=== PATIENT | male | born 1960 | race Caucasian/White ===

== ENCOUNTER 2021-08-02 15:11 | Observation (INO) ==
[2021-08-02] MEDS ORDERED: RAPID SEQUENCE INDUCTION BAG ONE (15:13)
[2021-08-02 15:36] LABS: iSTAT Creatinine 0.8 mg/dl (0.6-1.3); iSTAT Hemoglobin 14.6 g/dl (14.0-18.0); iSTAT Ionized Calcium 1.06 mmol/l (1.12-1.32); iSTAT Potassium 3.6 mmol/L (3.3-5.0)
[2021-08-02] MEDS ORDERED: OPTIRAY 320 125ml IV ONE (15:40)
[2021-08-02 15:43] LABS: Basophils # (auto) 0.04 K/uL (0-0.2); Basophils % (auto) 0.4 %; Eosinophils # (auto) 0.27 K/uL (0-0.5); Eosinophils % (auto) 2.5 %; Hematocrit (blood only) 43.6 % (42-52); Immature Granulocytes # (auto) 0.13 K/uL (0.00-0.02); Immature Granulocytes % (auto) 1.2 %; Lymphocytes # (auto) 2.05 K/uL (1.2-3.4); Mean Corpuscular Hgb Conc 34.4 g/dL (32-36); Mean Corpuscular Volume 90.1 fL (80-100); Mean Platelet Volume 11.2 fL (7.4-10.4); Monocytes # (auto) 0.87 K/uL (0.11-0.59); Neutrophils # (auto) 7.45 K/uL (1.4-6.5); Neutrophils % (auto) 68.9 %; Platelet Count 218 K/uL (130-400); RDW Coefficient of Variation 12.6 % (11.5-14.5); RDW Standard Deviation 41.5 fL (36.4-46.3); Red Blood Count 4.84 M/uL (4.7-6.1); White Blood Count 10.81 K/uL (4.8-10.8)
--- NOTE | 2021-08-02 15:52 | CT Scan Report ---
CT head/brain wo con CLINICAL HISTORY: stroke symptomss Technique: Contiguous axial CT images of the head were acquired from the base of the skull to the jasbir deborah without intravenous contrast administration. Images were viewed in brain, subdural and bone [facility]. Automated dose lowering techniques and/or adjustment according to patient size were utilized for this exam. Comparison: None available at the time of this dictation. Findings: The ventricles, basal cisterns, and cerebral sulci are normal. There is no acute intracranial hemorrh age or evidence of acute territorial infarction. Neither mass effect, shift of the midline structures , nor abnormal extra-axial fluid collections are shown. A hypodensity is seen in the left occipital cortex measuring 19 x 11 mm. This is nonspecific but does not appear to correspond to an acute infarc t. A mucous retention cyst is seen in the left maxillary sinus. The orbits appear normal. There are no acute fractures of the calvaria or scalp swelling. Impression: No evidence of acute infarct or hemorrhage. Hypodensity in left occipital is favored to represent a b enign lesion. If not previously characterized, nonemergent MRI can be performed. ACT 112: Negative or not required by law. Electronically signed by: Moreno Valiente M.D. 08/02/2021 3:51 PM
--- NOTE | 2021-08-02 15:53 | XRay Report ---
XR chest 1V portable CLINICAL HISTORY: Stroke Like Symptoms TECHNIQUE: Single frontal radiograph of the chest was obtained. Comparison: None available at the time of this dictation. FINDINGS: No lines and tubes are seen. The cardiomediastinal silhouette is normal. Prominence and cephalization of the vasculature is seen. A small left pleural effusion is seen. IMPRESSION: Mild pulmonary edema. Small left pleural effusion. ACT 112: Negative or not required by law. Electronically signed by: Moreno Valiente M.D. 08/02/2021 3:52 PM
[2021-08-02 15:59] LABS: Partial Thromboplastin Time 28.4 Seconds (21.0-31.0); Prothrombin Time 11.1 Seconds (9.0-12.0)
--- NOTE | 2021-08-02 16:03 | Emergency Department Note ---
Impression & Plan Altered mental status, Seizure, Right arm weakness, Hypoxia ED Provider Note NAME: INGRID WADE AGE: 60 SEX: M : 1960 ARRIVES VIA: Ambulance INFORMANT: [nursing, ems, family] ED PROVIDER(S): [Adrian King MD] CHIEF COMPLAINT: Altered mental state HISTORY OF PRESENT ILLNESS: The patient is a 60-year-old male who presents to the ER with an altered mental status. The patient for the last week or so has been having some difficulty with his right arm. The arm would not work for him and he would miss things he was grabbing. His symptoms seemed to come and go. He had an episode with the right arm today earlier. As per the , around an hour, may be an hour and 15 minutes ago, he yelled for her to come. She found him in the bathroom. He was talking like a child and seemed somewhat confused although there was no speech slur. He was holding his right arm as if it was stiff. He seemed to stumble back against the wall and she helped him to the ground. He had a 5-minute episode where he was stiff and his eyes rolled back in his head. He was drooling. EMS arrived. The patient was combative. Moving all extremities. He had a gaze to the right. There were times when he was lucid and could answer questions, there were times when he was not lucid. The patient was given 2 mg of IV Ativan, a second IV Ativan dose of 2 mg was given just prior to arrival at the ED. The patient presents confused, moving all extremities. Both his toes appear upgoing. He does have a gaze to the right. He was hypoxic and appeared to be taking very shallow breaths. Oxygen was applied. He was nonverbal and could not answer questions. He would look at me though when I yelled his name. REVIEW OF SYSTEMS: Unobtainable given the current mental state. PMHx/PSHx: See Below SOCIAL HISTORY: See Below. PHYSICAL EXAM: GENERAL: Patient is in moderate distress, somewhat agitated. HEENT: No acute trauma, normocephalic atraumatic, mucous membranes moist, no nasal congestion, no scleral icterus. Pupils equal and reactive to light. His gaze is to the right. NECK: No stridor, no adenopathy, no meningismus, trachea is midline. LUNGS: Clear to auscultation bilaterally but diminished bilaterally. He is taking shallow breaths. Breath sounds are equal. No wheezing. HEART: Without murmurs gallops or rubs, regular rate and rhythm. ABDOMEN: Soft, nontender, bowel sounds positive, no peritonitis. EXTREMITIES: No cyanosis or edema, full range of motion of all the joints without pain or difficulty, no signs for acute trauma. NEUROLOGIC: Does move all extremities. Both toes appear upgoing currently. Initially his gaze was to the right but this seemed to normalize during his stay. He would look at me when his name was called but was nonverbal. He could not follow any commands SKIN: No rash, no jaundice, mild diaphoresis. DIFFERENTIAL DIAGNOSIS: Seizure, intracranial bleeding, stroke, electrolyte imbalance, intracranial mass, anemia, infection, dysrhythmia, IN, among others. EMERGENCY DEPARTMENT COURSE/PROCEDURES: ECG: Indication was altered mental state. The ECG shows a normal sinus rhythm with a rate of 85. No ST elevation, no PVCs. LVH is present. The QTC is 449. Continuous Cardiac Monitoring: An order was placed for continuous cardiac monitoring. The monitor shows a rate of 74 with normal sinus rhythm. Critical Care Note: I have personally spent 61 minutes of critical care time in the direct management of this patient. This includes bedside care, interpretation of diagnostic studies, and testing, discussion with consultants, patient, and family members, and other required patient management activities. This 61 minutes is in excess of all separately billable procedures. MEDICAL DECISION MAKING: There is a very subtle leukocytosis, this could be consistent with infection or just the stress of his situation. There is a normal hemoglobin and platelet c ount. No coagulopathy. Potassium was slightly low, there was a slight anion gap and a mildly low CO2. No renal failure. No concerning liver enzyme elevation. Prolactin level was elevated consistent with potential seizure. BNP was not elevated making fluid overload unlikely. ECG showed a normal sinus rhythm, no obvious ischemia. Cardiac enzyme testing x1 did not show any elevation. Urinalysis did not show infection. Urine tox was negative. COVID test was negative. Chest x-ray showed some hypoventilation versus some fluid overload. No pneumothorax or pneumonia. Brain CT showed a potentially benign lesion in the left occipital lobe. There was no intracranial bleeding. CT angio of the brain and neck were without stenosis or clot. Brain MRI showed a potential malignancy. The patient presented altered. By history, he had a seizure earlier and I suspect he was postictal when seen by EMS. He had received 4 mg of IV Ativan prior to arrival and this seemed to stop the seizure activity. He was hypoxic likely from the post seizure mental state coupled with the Ativan that was given. He did well when given oxygen supplementation. The patient was loaded with Keppra IV. He was given IV Decadron for potential brain edema. I did speak with neurology. I spoke with neurology before the MRI results had returned. The patient was to be hospitalized and his seizures controlled. He was to have an MRI. The MRI was done on the way to his assigned room. The MRI results returned when he was no longer in the ED. Dr. Jerome, the admitting physician, spoke with me and is aware of the findings on MRI. He is going to call and talk to [facility] neurosurgery about the MRI findings. I spoke to the patient's about my concerns for seizure and about the lesion seen on CT. I was not able to discuss the brain MRI as she was no longer in the ED. During the patient's course in our ED, he remained asleep, he was resting comfortably. No further seizure activity noted. Past Med/Surg History Medical History GERD (gastroesophageal reflux disease) Prostatic hypertrophy Social History Smoking Status: Never smoker Preferred Language: Greenlandic Feels Safe at Home: Yes Allergies Allergies Allergy/AdvReac Type Severity Reaction Status Date / Time No Known Allergies Allergy Verified 08/02/21 16:05 Home Meds Home Medications Medication Instructions Recorded Confirmed alfuzosin 10 mg tablet,extended 10 mg PO DAILY 08/02/21 08/02/21 release 24 hr pantoprazole 40 mg tablet,delayed 40 mg PO QAM 08/02/21 08/02/21 release Results & Data (ED) Vital Signs Vital Signs - 24 hr 08/02/21 15:17 08/02/21 15:20 08/02/21 15:21 Temperature Temperature Source Pulse Rate 84 85 73 Pulse Rate from SpO2 Sensor 85 Pulse Rhythm Regular Pulse Strength Normal Respiratory Rate 17 14 16 Respiratory Effort / Characteristics Non-Labored Spontaneous Respiratory Depth Shallow Blood Pressure 119/80 122/75 Blood Pressure Mean 93 90 Blood Pressure Position Lying Pulse Oximetry 91 97 Oxygen Delivery Method Non-rebreather Non-rebreather Oxygen Flow Rate 15 15 Sepsis Recent Fever Within 48 Hours No Sepsis New/Unexplained Change in Mental Status Yes Sepsis Action Taken by Nursing No Action Required 08/02/21 15:38 08/02/21 15:39 08/02/21 15:40 Temperature Temperature Source Pulse Rate 80 73 73 Pulse Rate from SpO2 Sensor 79 73 74 Pulse Rhythm Pulse Strength Respiratory Rate 20 22 18 Respiratory Effort / Characteristics Respiratory Depth Blood Pressure 122/75 120/71 Blood Pressure Mean 90 87 Blood Pressure Position Pulse Oximetry 97 96 97 Oxygen Delivery Method Oxygen Flow Rate 15 15 15 Sepsis Recent Fever Within 48 Hours Sepsis New/Unexplained Change in Mental Status Sepsis Action Taken by Nursing 08/02/21 15:47 08/02/21 15:49 08/02/21 15:50 Temperature 36.5 C Temperature Source Axillary Pulse Rate 71 Pulse Rate from SpO2 Sensor 70 Pulse Rhythm Pulse Strength Respiratory Rate 18 Respiratory Effort / Characteristics Respiratory Depth Blood Pressure 124/72 Blood Pressure Mean 89 Blood Pressure Position Pulse Oximetry 98 97 Oxygen Delivery Method Non-rebreather Non-rebreather Oxygen Flow Rate 15 15 Sepsis Recent Fever Within 48 Hours Sepsis New/Unexplained Change in Mental Status Sepsis Action Taken by Nursing 08/02/21 16:00 08/02/21 16:10 08/02/21 16:20 Temperature Temperature Source Pulse Rate 74 79 81 Pulse Rate from SpO2 Sensor 68 81 80 Pulse Rhythm Pulse Strength Respiratory Rate 21 18 18 Respiratory Effort / Characteristics Respiratory Depth Blood Pressure 129/77 131/75 122/78 Blood Pressure Mean 94 93 92 Blood Pressure Position Pulse Oximetry 94 96 96 Oxygen Delivery Method Non-rebreather Non-rebreather Non-rebreather Oxygen Flow Rate 15 11 11 Sepsis Recent Fever Within 48 Hours Sepsis New/Unexplained Change in Mental Status Sepsis Action Taken by Nursing 08/02/21 16:30 08/02/21 16:40 08/02/21 16:50 Temperature Temperature Source Pulse Rate 80 78 79 Pulse Rate from SpO2 Sensor 81 78 78 Pulse Rhythm Pulse Strength Respiratory Rate 19 16 18 Respiratory Effort / Characteristics Respiratory Depth Blood Pressure 127/80 123/82 139/86 Blood Pressure Mean 95 95 103 Blood Pressure Position Pulse Oximetry 96 97 95 Oxygen Delivery Method Non-rebreather Non-rebreather Non-rebreather Oxygen Flow Rate 11 11 8 Sepsis Recent Fever Within 48 Hours Sepsis New/Unexplained Change in Mental Status Sepsis Action Taken by Nursing 08/02/21 17:00 08/02/21 17:10 08/02/21 17:20 Temperature Temperature Source Pulse Rate 76 71 74 Pulse Rate from SpO2 Sensor 78 72 77 Pulse Rhythm Pulse Strength Respiratory Rate 18 22 17 Respiratory Effort / Characteristics Respiratory Depth Blood Pressure 135/89 Blood Pressure Mean 104 Blood Pressure Position Pulse Oximetry 97 95 96 Oxygen Delivery Method Nasal Cannula Oxygen Flow Rate 3 Sepsis Recent Fever Within 48 Hours Sepsis New/Unexplained Change in Mental Status Sepsis Action Taken by Retirement Medications Current Medication List: was personally reviewed by me Laboratory Data Attestation: I reviewed the patient's lab results. Result diagrams: 08/02/21 15:19 08/02/21 15:19 Lab Results 08/02/21 08/02/21 08/02/21 Range/Units 15:19 15:19 15:19 WBC 10.81 H (4.8-10.8) K/uL RBC 4.84 (4.7-6.1) M/uL Hgb 15.0 (14.0-18.0) g/dL POC Hgb (14.0-18.0) g/dl Hct 43.6 (42-52) % POC Hct (42-52) % MCV 90.1 (80-100) fL MCH 31.0 (25-34) pg MCHC 34.4 (32-36) g/dL RDW Std Deviation 41.5 (36.4-46.3) fL RDW Coeff of Dinorah 12.6 (11.5-14.5) % Plt Count 218 (130-400) K/uL MPV 11.2 H (7.4-10.4) fL Immature Gran % (Auto) 1.2 % Neut % (Auto) 68.9 % Lymph % (Auto) 19.0 % [place] % (Auto) 8.0 % Eos % (Auto) 2.5 % Baso % (Auto) 0.4 % Neut # (Auto) 7.45 H (1.4-6.5) K/uL Lymph # (Auto) 2.05 (1.2-3.4) K/uL [place] # (Auto) 0.87 H (0.11-0.59) K/uL Eos # (Auto) 0.27 (0-0.5) K/uL Baso # (Auto) 0.04 (0-0.2) K/uL Immature Gran # (Auto) 0.13 H (0.00-0.02) K/uL PT 11.1 (9.0-12.0) Seconds INR 1.0 (0.9-1.1) APTT 28.4 (21.0-31.0) Seconds PTT Ratio 1.0 POC Sodium (135-144) mmol/L Sodium 138 (136-145) mmol/L POC Potassium (3.3-5.0) mmol/L Potassium 3.4 L (3.5-5.1) mmol/L POC Chloride (101-112) mmol/L Chloride 103 (98-107) mmol/L Carbon Dioxide 19 L (21-32) mmol/L POC Total CO2 (24-31) mmol/L Anion Gap 16 H (3-11) POC Anion Gap (16-25) mmol/L POC BUN (7-18) mg/dl BUN 12 (6-23) mg/dl Creatinine 0.89 (0.6-1.4) mg/dl POC Creatinine (0.6-1.3) mg/dl Est Cr Clr Drug Dosing 113.4 ml/min Est GFR ( Amer) 107.0 ml/min Est GFR (Non-Af Amer) 92.3 ml/min BUN/Creatinine Ratio 13.5 (10-20) Glucose 115 H (70-99(Fasting)) mg/dl POC Glucose (other) (70-99) mg/dl Calcium 9.5 (8.5-10.1) mg/dl POC Ioniz Calcium Madina (1.12-1.32) mmol/l Magnesium 2.1 (1.7-2.4) mg/dl Total Bilirubin 0.6 (0.2-1.0) mg/dl AST 20 (13-39) U/L ALT 17 (7-52) U/L Alkaline Phosphatase 100 (34-104) U/L Troponin I High Sens 7.2 (0-20) pg/ml B-Natriuretic Peptide (0-100) pg/ml Total Protein 7.3 (6.0-8.3) gm/dl Albumin 4.2 (3.4-5.0) gm/dl Globulin 3.1 (2.5-4.0) gm/dl Albumin/Globulin Ratio 1.4 (0.9-2) Prolactin ng/ml Urine Color Urine Appearance (Clear) Urine pH (4.5-7.5) Ur Specific [place] (1.000-1.030) Urine Protein (Negative) Urine Glucose (UA) (Negative) Urine Ketones (Negative) Urine Blood (Negative) Urine Nitrite (Negative) Urine Bilirubin (Negative) Urine Urobilinogen (Negative) Ur Leukocyte Esterase (Negative) Urine Opiates Screen (Neg) Ur Methadone, Qual (Neg) Urine Barbiturates (Neg) Ur Phencyclidine (PCP) (Neg) U Amphetamin/Meth Scrn (Neg) MDMA (Ecstasy) Screen (Neg) U Benzodiazepines Scrn (Neg) Ur Cocaine Metabolite (Neg) U Marijuana (THC) Screen (Neg) SARS-CoV-2, RNA, NAAT (NEGATIVE) Blood Type Antibody Screen 08/02/21 08/02/21 08/02/21 Range/Units 15:19 15:21 15:40 WBC (4.8-10.8) K/uL RBC (4.7-6.1) M/uL Hgb (14.0-18.0) g/dL POC Hgb 14.6 (14.0-18.0) g/dl Hct (42-52) % POC Hct 43 (42-52) % MCV (80-100) fL MCH (25-34) pg MCHC (32-36) g/dL RDW Std Deviation (36.4-46.3) fL RDW Coeff of Dinorah (11.5-14.5) % Plt Count (130-400) K/uL MPV (7.4-10.4) fL Immature Gran % (Auto) % Neut % (Auto) % Lymph % (Auto) % [place] % (Auto) % Eos % (Auto) % Baso % (Auto) % Neut # (Auto) (1.4-6.5) K/uL Lymph # (Auto) (1.2-3.4) K/uL [place] # (Auto) (0.11-0.59) K/uL Eos # (Auto) (0-0.5) K/uL Baso # (Auto) (0-0.2) K/uL Immature Gran # (Auto) (0.00-0.02) K/uL PT (9.0-12.0) Seconds INR (0.9-1.1) APTT (21.0-31.0) Seconds PTT Ratio POC Sodium 141 (135-144) mmol/L Sodium (136-145) mmol/L POC Potassium 3.6 (3.3-5.0) mmol/L Potassium (3.5-5.1) mmol/L POC Chloride 103 (101-112) mmol/L Chloride (98-107) mmol/L Carbon Dioxide (21-32) mmol/L POC Total CO2 21 L (24-31) mmol/L Anion Gap (3-11) POC Anion Gap 21.0 (16-25) mmol/L POC BUN 11 (7-18) mg/dl BUN (6-23) mg/dl Creatinine (0.6-1.4) mg/dl POC Creatinine 0.8 (0.6-1.3) mg/dl Est Cr Clr Drug Dosing ml/min Est GFR ( Amer) ml/min Est GFR (Non-Af Amer) ml/min BUN/Creatinine Ratio (10-20) Glucose (70-99(Fasting)) mg/dl POC Glucose (other) 115 H (70-99) mg/dl Calcium (8.5-10.1) mg/dl POC Ioniz Calcium Mad[place] 1.06 L (1.12-1.32) mmol/l Magnesium (1.7-2.4) mg/dl Total Bilirubin (0.2-1.0) mg/dl AST (13-39) U/L ALT (7-52) U/L Alkaline Phosphatase (34-104) U/L Troponin I High Sens (0-20) pg/ml B-Natriuretic Peptide (0-100) pg/ml Total Protein (6.0-8.3) gm/dl Albumin (3.4-5.0) gm/dl Globulin (2.5-4.0) gm/dl Albumin/Globulin Ratio (0.9-2) Prolactin 65.79 ng/ml Urine Color Urine Appearance (Clear) Urine pH (4.5-7.5) Ur Specific [place] (1.000-1.030) Urine Protein (Negative) Urine Glucose (UA) (Negative) Urine Ketones (Negative) Urine Blood (Negative) Urine Nitrite (Negative) Urine Bilirubin (Negative) Urine Urobilinogen (Negative) Ur Leukocyte Esterase (Negative) Urine Opiates Screen (Neg) Ur Methadone, Qual (Neg) Urine Barbiturates (Neg) Ur Phencyclidine (PCP) (Neg) U Amphetamin/Meth Scrn (Neg) MDMA (Ecstasy) Screen (Neg) U Benzodiazepines Scrn (Neg) Ur Cocaine Metabolite (Neg) U Marijuana (THC) Screen (Neg) SARS-CoV-2, RNA, NAAT (NEGATIVE) Blood Type O Negative Antibody Screen NEGATIVE 08/02/21 08/02/21 08/02/21 Range/Units 15:45 15:53 15:53 WBC (4.8-10.8) K/uL RBC (4.7-6.1) M/uL Hgb (14.0-18.0) g/dL POC Hgb (14.0-18.0) g/dl Hct (42-52) % POC Hct (42-52) % MCV (80-100) fL MCH (25-34) pg MCHC (32-36) g/dL RDW Std Deviation (36.4-46.3) fL RDW Coeff of Dinorah (11.5-14.5) % Plt Count (130-400) K/uL MPV (7.4-10.4) fL Immature Gran % (Auto) % Neut % (Auto) % Lymph % (Auto) % [place] % (Auto) % Eos % (Auto) % Baso % (Auto) % Neut # (Auto) (1.4-6.5) K/uL Lymph # (Auto) (1.2-3.4) K/uL [place] # (Auto) (0.11-0.59) K/uL Eos # (Auto) (0-0.5) K/uL Baso # (Auto) (0-0.2) K/uL Immature Gran # (Auto) (0.00-0.02) K/uL PT (9.0-12.0) Seconds INR (0.9-1.1) APTT (21.0-31.0) Seconds PTT Ratio POC Sodium (135-144) mmol/L Sodium (136-145) mmol/L POC Potassium (3.3-5.0) mmol/L Potassium (3.5-5.1) mmol/L POC Chloride (101-112) mmol/L Chloride (98-107) mmol/L Carbon Dioxide (21-32) mmol/L POC Total CO2 (24-31) mmol/L Anion Gap (3-11) POC Anion Gap (16-25) mmol/L POC BUN (7-18) mg/dl BUN (6-23) mg/dl Creatinine (0.6-1.4) mg/dl POC Creatinine (0.6-1.3) mg/dl Est Cr Clr Drug Dosing ml/min Est GFR ( Amer) ml/min Est GFR (Non-Af Amer) ml/min BUN/Creatinine Ratio (10-20) Glucose (70-99(Fasting)) mg/dl POC Glucose (other) (70-99) mg/dl Calcium (8.5-10.1) mg/dl POC Ioniz Calcium Madina (1.12-1.32) mmol/l Magnesium (1.7-2.4) mg/dl Total Bilirubin (0.2-1.0) mg/dl AST (13-39) U/L ALT (7-52) U/L Alkaline Phosphatase (34-104) U/L Troponin I High Sens (0-20) pg/ml B-Natriuretic Peptide (0-100) pg/ml Total Protein (6.0-8.3) gm/dl Albumin (3.4-5.0) gm/dl Globulin (2.5-4.0) gm/dl Albumin/Globulin Ratio (0.9-2) Prolactin ng/ml Urine Color Yellow Urine Appearance Clear (Clear) Urine pH 5.0 (4.5-7.5) Ur Specific [place] 1.024 (1.000-1.030) Urine Protein Negative (Negative) Urine Glucose (UA) Negative (Negative) Urine Ketones Negative (Negative) Urine Blood Negative (Negative) Urine Nitrite Negative (Negative) Urine Bilirubin Negative (Negative) Urine Urobilinogen Negative (Negative) Ur Leukocyte Esterase Negative (Negative) Urine Opiates Screen Neg (Neg) Ur Methadone, Qual Neg (Neg) Urine Barbiturates Neg (Neg) Ur Phencyclidine (PCP) Neg (Neg) U Amphetamin/Meth Scrn Neg (Neg) MDMA (Ecstasy) Screen Neg (Neg) U Benzodiazepines Scrn Neg (Neg) Ur Cocaine Metabolite Neg (Neg) U Marijuana (THC) Screen Neg (Neg) SARS-CoV-2, RNA, NAAT NEGATIVE (NEGATIVE) Blood Type Antibody Screen 08/02/21 Range/Units 16:04 WBC (4.8-10.8) K/uL RBC (4.7-6.1) M/uL Hgb (14.0-18.0) g/dL POC Hgb (14.0-18.0) g/dl Hct (42-52) % POC Hct (42-52) % MCV (80-100) fL MCH (25-34) pg MCHC (32-36) g/dL RDW Std Deviation (36.4-46.3) fL RDW Coeff of Dinorah (11.5-14.5) % Plt Count (130-400) K/uL MPV (7.4-10.4) fL Immature Gran % (Auto) % Neut % (Auto) % Lymph % (Auto) % [place] % (Auto) % Eos % (Auto) % Baso % (Auto) % Neut # (Auto) (1.4-6.5) K/uL Lymph # (Auto) (1.2-3.4) K/uL [place] # (Auto) (0.11-0.59) K/uL Eos # (Auto) (0-0.5) K/uL Baso # (Auto) (0-0.2) K/uL Immature Gran # (Auto) (0.00-0.02) K/uL PT (9.0-12.0) Seconds INR (0.9-1.1) APTT (21.0-31.0) Seconds PTT Ratio POC Sodium (135-144) mmol/L Sodium (136-145) mmol/L POC Potassium (3.3-5.0) mmol/L Potassium (3.5-5.1) mmol/L POC Chloride (101-112) mmol/L Chloride (98-107) mmol/L Carbon Dioxide (21-32) mmol/L POC Total CO2 (24-31) mmol/L Anion Gap (3-11) POC Anion Gap (16-25) mmol/L POC BUN (7-18) mg/dl BUN (6-23) mg/dl Creatinine (0.6-1.4) mg/dl POC Creatinine (0.6-1.3) mg/dl Est Cr Clr Drug Dosing ml/min Est GFR ( Amer) ml/min Est GFR (Non-Af Amer) ml/min BUN/Creatinine Ratio (10-20) Glucose (70-99(Fasting)) mg/dl POC Glucose (other) (70-99) mg/dl Calcium (8.5-10.1) mg/dl POC Ioniz Calcium Madina (1.12-1.32) mmol/l Magnesium (1.7-2.4) mg/dl Total Bilirubin (0.2-1.0) mg/dl AST (13-39) U/L ALT (7-52) U/L Alkaline Phosphatase (34-104) U/L Troponin I High Sens (0-20) pg/ml B-Natriuretic Peptide 63 (0-100) pg/ml Total Protein (6.0-8.3) gm/dl Albumin (3.4-5.0) gm/dl Globulin (2.5-4.0) gm/dl Albumin/Globulin Ratio (0.9-2) Prolactin ng/ml Urine Color Urine Appearance (Clear) Urine pH (4.5-7.5) Ur Specific [place] (1.000-1.030) Urine Protein (Negative) Urine Glucose (UA) (Negative) Urine Ketones (Negative) Urine Blood (Negative) Urine Nitrite (Negative) Urine Bilirubin (Negative) Urine Urobilinogen (Negative) Ur Leukocyte Esterase (Negative) Urine Opiates Screen (Neg) Ur Methadone, Qual (Neg) Urine Barbiturates (Neg) Ur Phencyclidine (PCP) (Neg) U Amphetamin/Meth Scrn (Neg) MDMA (Ecstasy) Screen (Neg) U Benzodiazepines Scrn (Neg) Ur Cocaine Metabolite (Neg) U Marijuana (THC) Screen (Neg) SARS-CoV-2, RNA, NAAT (NEGATIVE) Blood Type Antibody Screen Administered Medications Discontinued Medications Dexamethasone Sodium Phosphate (DexamethasonePf 10 Mg/Ml Vial) 10 mg IV NOW ONE Stop: 08/02/21 16:13 Last Admin: 08/02/21 16:21 Dose: 10 mg Documented by: [id number] Gadobutrol (Gadobutrol 30ml Vial) 11 ml IV ONCE ONE Stop: 08/02/21 18:19 Last Admin: 08/02/21 18:19 Dose: 11 ml Documented by: [id number] Levetiracetam 2,000 mg/ Sodium (Chloride) 270 mls @ 1,080 mls/hr IV NOW STA Stop: 08/02/21 15:30 Last Infusion: 08/02/21 16:16 Dose: 0 mls/hr Documented by: [id number] Admin: 08/02/21 15:30 Dose: 1,080 mls/hr Documented by: [id number] Levetiracetam 2,500 mg/ Sodium (Chloride) 275 mls @ 1,080 mls/hr IV NOW STA Stop: 08/02/21 16:00 Last Infusion: 08/02/21 16:28 Dose: 0 mls/hr Documented by: [id number] Admin: 08/02/21 15:50 Dose: 1,080 mls/hr Documented by: [id number] Lorazepam 0.5 mg/ Syringe 0.5 mls @ 2 mls/min IV NOW STA Stop: 08/02/21 17:29 Last Admin: 08/02/21 17:51 Dose: 2 mls/min Documented by: [id number] Ioversol (Optiray 320 125ml) 120 ml IV ONCE ONE Stop: 08/02/21 15:41 Last Admin: 08/02/21 15:40 Dose: 120 ml Documented by: [id number] Imaging Data Radiologist's Impression: Head CT 08/02/21 15:19 CT head/brain wo con CLINICAL HISTORY: stroke symptomss Technique: Contiguous axial CT images of the head were acquired from the base of the skull to the vertex without intravenous contrast administration. Images were viewed in brain, subdural and bone windows. Automated dose lowering techniques and/or adjustment according to patient size were utilized for this exam. Comparison: None available at the time of this dictation. Findings: The ventricles, basal cisterns, and cerebral sulci are normal. There is no acute intracranial hemorrhage or evidence of acute territorial infarction. Neither mass effect, shift of the midline structures, nor abnormal extra-axial fluid collections are shown. A hypodensity is seen in the left occipital cortex measuring 19 x 11 mm. This is nonspecific but does not appear to correspond to an acute infarct. A mucous retention cyst is seen in the left maxillary sinus. The orbits appear normal. There are no acute fractures of the calvaria or scalp swelling. Impression: No evidence of acute infarct or hemorrhage. Hypodensity in left occipital is favored to represent a benign lesion. If not previously characterized, nonemergent MRI can be performed. ACT 112: Negative or not required by law. Electronically signed by: Moreno Valiente M.D. 08/02/2021 3:51 PM Head CTA 08/02/21 15:19 CT angio neck with con, CT angio head w con CLINICAL HISTORY: stroke TECHNIQUE: CT angiography of the head and neck was performed following intravenous administration of iodinated contrast. Coronal and sagittal MIPS were obtained from the axial data set and were submitted for review. Automated dose lowering techniques and/or adjustment according to patient size were utilized for this examination. All measurements were calculated based on NASCET criteria. Comparison: None available at the time of this dictation. FINDINGS: Lungs and soft tissues are unremarkable. CTA Neck: A 3 vessel aortic arch is shown. There is no significant atherosclerotic plaque in the aortic arch or the origins of the innominate, left common carotid, and left subclavian arteries. The common carotid, external carotid, cervical segments of the internal carotid arteries, and the cervical segments of the vertebral arteries are patent without hemodynamically significant stenosis. The left vertebral artery is dominant. CTA Head: The anterior and posterior cerebral circulations are patent. No hemodynamically significant stenosis, aneurysm, dissection, or arteriovenous malformation is shown. origin of the left posterior cerebral artery is seen. IMPRESSION: 1. No occlusion, hemodynamically significant stenosis, aneurysm, dissection, or arteriovenous malformation in the major intracranial arteries. 2. No occlusion, hemodynamically significant stenosis, or dissection in the major cervical arteries. Assessment of stenosis of the internal carotid arteries is based on NASCET criteria. ACT 112: Negative or not required by law. Electronically signed by: Moreno Valiente M.D. 08/02/2021 4:05 PM Neck CTA 08/02/21 15:19 CT angio neck with con, CT angio head w con CLINICAL HISTORY: stroke TECHNIQUE: CT angiography of the head and neck was performed following intravenous administration of iodinated contrast. Coronal and sagittal MIPS were obtained from the axial data set and were submitted for review. Automated dose lowering techniques and/or adjustment according to patient size were utilized for this examination. All measurements were calculated based on NASCET criteria. Comparison: None available at the time of this dictation. FINDINGS: Lungs and soft tissues are unremarkable. CTA Neck: A 3 vessel aortic arch is shown. There is no significant atherosclerotic plaque in the aortic arch or the origins of the innominate, left common carotid, and left subclavian arteries. The common carotid, external carotid, cervical segments of the internal carotid arteries, and the cervical segments of the vertebral arteries are patent without hemodynamically significant stenosis. The left vertebral artery is dominant. CTA Head: The anterior and posterior cerebral circulations are patent. No hemodynamically significant stenosis, aneurysm, dissection, or arteriovenous malformation is shown. origin of the left posterior cerebral artery is seen. IMPRESSION: 1. No occlusion, hemodynamically significant stenosis, aneurysm, dissection, or arteriovenous malformation in the major intracranial arteries. 2. No occlusion, hemodynamically significant stenosis, or dissection in the major cervical arteries. Assessment of stenosis of the internal carotid arteries is based on NASCET criteria. ACT 112: Negative or not required by law. Electronically signed by: Moreno Valiente M.D. 08/02/2021 4:05 PM Chest X-Ray 08/02/21 15:20 XR chest 1V portable CLINICAL HISTORY: Stroke Like Symptoms TECHNIQUE: Single frontal radiograph of the chest was obtained. Comparison: None available at the time of this dictation. FINDINGS: No lines and tubes are seen. The cardiomediastinal silhouette is normal. Prominence and cephalization of the vasculature is seen. A small left pleural effusion is seen. IMPRESSION: Mild pulmonary edema. Small left pleural effusion. ACT 112: Negative or not required by law. Electronically signed by: Moreno Valiente M.D. 08/02/2021 3:52 PM Brain MRI 08/02/21 17:01 MR brain seizure wo/w con CLINICAL HISTORY: seizure, lesion on ct scan TECHNIQUE: Multiplanar and multisequence MR images of the brain were obtained prior to and following administration of gadolinium contrast. Comparison: None available at the time of this dictation. FINDINGS: No abnormal restricted diffusion is identified. The white matter is unremarkable. The ventricular system is normal in appearance. No mass or abnorm al enhancement is seen. There is no mass effect or midline shift. Tiny foci of stability artifact are seen in the periphery of this lesion. There is a rim- enhancing cystic lesion in the left parieto-occipital subcortical white matter measuring 21 x 19 15 mm. there is minimal surrounding edema. The corpus callosum, pituitary gland, and cerebellar tonsils appear grossly unremarkable. High-resolution images of the temporal lobes do not demonstrate any signal abnormality. Flow voids of the major intracranial arterial vessels are identified. The imaged portions of the paranasal sinuses, mastoid air cells, and orbits are unremarkable. IMPRESSION: Rim-enhancing cystic lesion in the left parieto-occipital subcortical white matter with minimal surrounding edema in a tiny amount of surrounding hemorrhage. Findings are concerning for primary MUSIC ORCHESTRATOR neoplasm such as glioblastoma or astrocytoma. Metastatic disease is considered less likely given Limited edema. Also possible, although less concordant with patient history, are MUSIC ORCHESTRATOR lymphoma, cerebral abscess, tuberculoma, or cysticercosis. ACT 112: Negative or not required by law. Electronically signed by: Moreno Valiente M.D. 08/02/2021 6:42 PM Discharge Plan Visit Data Chief Complaint: Altered Mental Status Stated Complaint: COMBATIVE, POSSIBLE HEAD BLEED ED Provider: Adrian King Discharge Problem: Altered mental status, Seizure, Right arm weakness, Hypoxia Patient Disposition: Admitted As Inpatient Condition: Serious Discharge Instructions Interventions: ED Discharge Assessment Last Done: 08/02/21 18:00
[2021-08-02 16:05] LABS: Albumin Globulin Ratio 1.4 (0.9-2); Albumin Level 4.2 gm/dl (3.4-5.0); BUN Creatinine Ratio 13.5 (10-20); Bilirubin,Total 0.6 mg/dl (0.2-1.0); Calcium 9.5 mg/dl (8.5-10.1); Creatinine Clr Calc Pharmacy 113.4 ml/min; Est GFR (Non-African American) 92.3 ml/min; Globulin 3.1 gm/dl (2.5-4.0); Magnesium 2.1 mg/dl (1.7-2.4); Potassium 3.4 mmol/L (3.5-5.1); Total Protein 7.3 gm/dl (6.0-8.3)
[2021-08-02 16:08] LABS: Troponin I High Sensitivity 7.2 pg/ml (0-20)
--- NOTE | 2021-08-02 16:08 | CT Scan Report ---
CT angio neck with con, CT angio head w con CLINICAL HISTORY: stroke TECHNIQUE: CT angiography of the head and neck was performed following intravenous administration of iodinated contrast. Coronal and sagittal MIPS were obtained from the axial data set and were submitte d for review. Automated dose lowering techniques and/or adjustment according to patient size were ut ilized for this examination. All measurements were calculated based on NASCET criteria. Comparison: None available at the time of this dictation. FINDINGS: Lungs and soft tissues are unremarkable. CTA Neck: A 3 vessel aortic arch is shown. There is no significant atherosclerotic plaque in the aor tic arch or the origins of the innominate, left common carotid, and left subclavian arteries. The c ommon carotid, external carotid, cervical segments of the internal carotid arteries, and the cervical segments of the vertebral arteries are patent without hemodynamically significant stenosis. The left vertebral artery is dominant. CTA Head: The anterior and posterior cerebral circulations are patent. No hemodynamically significan t stenosis, aneurysm, dissection, or arteriovenous malformation is shown. origin of the left po sterior cerebral artery is seen. IMPRESSION: 1. No occlusion, hemodynamically significant stenosis, aneurysm, dissection, or arteriovenous malfor mation in the major intracranial arteries. 2. No occlusion, hemodynamically significant stenosis, or dissection in the major cervical arteries. Assessment of stenosis of the internal carotid arteries is based on NASCET criteria. ACT 112: Negative or not required by law. Electronically signed by: Moreno Valiente M.D. 08/02/2021 4:05 PM
[2021-08-02 16:12] LABS: Appearance Urine Clear (Clear); Bilirubin Urine Negative (Negative); Blood Urine Negative (Negative); Color Urine Yellow; Glucose Urine UA Negative (Negative); Ketones Urine Negative (Negative); Leukocyte Esterase Urine Negative (Negative); Nitrite Urine Negative (Negative); Protein Urine Negative (Negative); Specific Gravity Urine 1.024 (1.000-1.030); Urobilinogen Urine Negative (Negative)
[2021-08-02] MEDS ORDERED: dexAMETHasone**PF** 10 MG/ML VIAL IV ONE (16:12)
[2021-08-02 16:49] LABS: Amphetamines+Metham, Urine Neg (Neg); Barbiturates, Urine Neg (Neg); Benzodiazepine, Urine Neg (Neg); Cocaine, Urine Neg (Neg); MDMA (Ecstacy), Urine Neg (Neg); Methadone, Urine Neg (Neg); Opiate, Urine Neg (Neg); Phencyclidine, Urine Neg (Neg)
[2021-08-02] MEDS ORDERED: LORazepam 1 MG in SYRINGE 0.5 ML IV PRN (17:26)
[2021-08-02] MEDS ORDERED: LORazepam 0.5 MG in SYRINGE 0.25 ML IV STA (17:28)
[2021-08-02] MEDS ORDERED: LORazepam 2 MG/1 ML VIAL ONE (17:37)
--- NOTE | 2021-08-02 17:52 | History & Physical Report ---
Date of Service August 02, 2021 Assessment & Plan (1) Seizure disorder: Plan: Right upper extremity clumsiness for 1 week followed by Stiffness and drooling and combativeness seen this afternoon Likely has seizure with left occipital lesion in CAT scan Discussed with neurologist Has been loaded with intravenous Keppra and will continue with Keppra 750 mg twice daily We will keep him n.p.o. Cautious amount of intravenous fluid Ativan as needed for any seizure disorder and or agitation Seizure precaution MRI showed IMPRESSION: Rim-enhancing cystic lesion in the left parieto-occipital subcortical white matter with minimal surrounding edema in a tiny amount of surrounding hemorrhage. Findings are concerning for primary AIRCRAFT TOOL MAKER neoplasm such as glioblastoma or astrocytoma. Metastatic disease is considered less likely given Limited edema. Also possible, although less concordant with patient history, are AIRCRAFT TOOL MAKER lymphoma, cerebral abscess, tuberculoma, or cysticercosis. Case discussed with the Neurologist over here and then Neurosurgery at [place] -Dr Soto and [facility] [facility] -Dr Rodriguez and the patient was transferred to [facility] for continued care Discussed with the Family members (2) Change in mental status: Plan: Likely secondary to seizure disorder Urine tox screen has been negative No history of drug and/or alcohol abuse We will observe (3) Dyspepsia: Plan: Continue Protonix (4) Prostatic hypertrophy: Plan: Continue current medication DVT prophylaxis SCDs for now CODE STATUS Full History of Present Illness Chief Complaint: Change in mental status with abnormal movements of the extremities Primary Care Provider: NO PCP The history was taken from the . He is a 60-year-old male without significant past medical history and has been visiting from [facility] apparently has been complaining of right arm discomfort for the last 1 week. He was trying to reach things with his right upper extremity but sometime he was missing the object. This happened x2 for the last 1 week and he did not have any other associated symptoms with it. This afternoon around 1:30 PM he went downstairs and from there he yelled for his who went to see him in the basement and noted to have abnormal movements involving the upper extremity in the form of stiffness and also he was rolling his eyes and noted to have some drooling from the mouth. He tried to communicate but he does unrecognizable as per the . He did not have any self injury or did not have any incontinence but he was noted to be at the corner of the restroom and almost sliding down the wall. EMS was called in and he was noted to be combative on the way and received intravenous Ativan to control the symptoms. He was noted to have his eyes gaze to the right as per the ER physician but during examination his eyes were in normal position. He tried to obey commands and try to talk to me but did not really follow any commands. Tried to squeeze the fingers with both sides but did not move his legs. Plantars were withdrawing. There is no neck stiffness. CT scan of the head did not show left occipital lesion could be old but CTA were unremarkable his other labs are unremarkable too. He was admitted to ICU for close observation in ICU. He was loaded with Keppra for possible seizure episode. Allergies Allergy/AdvReac Type Severity Reaction Status Date / Time No Known Allergies Allergy Verified 08/02/21 16:05 Home Medications Medication Instructions Recorded Confirmed Type alfuzosin 10 mg tablet,extended 10 mg PO DAILY 08/02/21 08/02/21 History release 24 hr pantoprazole 40 mg tablet,delayed 40 mg PO QAM 08/02/21 08/02/21 History release Past Med/Surg History Medical History GERD (gastroesophageal reflux disease) Prostatic hypertrophy Social History Smoking Status: Never smoker Hx Alcohol Use: Yes Hx Substance Use: No Preferred Language: Yoruba Communication Ability: Impaired Supervisor Lending Activities Required: No Beliefs That Will Affect Care: None Current Living Situation: Spouse Other Information That Helps Us Care for You: No Feels Safe at Home: Yes Safety Concerns: Feels Safe At This Time Assistive Devices: Glasses Review of Systems Review of Systems: Unobtainable due to cognitive status Physical Exam Physical Exam: Lying in bed with occasional restlessness Constitutional: well developed, well nourished, + ill appearing and + obese Eyes: PERRL, conjunctivae normal, anicteric sclerae ENMT: external ear and nose normal, oropharynx normal Neck: trachea midline, no thyromegaly Respiratory: no respiratory distress Auscultation: lungs clear to auscultation bilaterally Cardiovascular: Rate/Rhythm: regular rate and regular rhythm; not tachycardic Heart Sounds: normal S1 and normal S2; no murmur Extremities: no edema Gastrointestinal (Abdomen): Inspection/Auscultation: normal bowel sounds; abdomen not distended Percussion/Palpation: abdomen soft; abdomen nontender Musculoskeletal: No acute arthritis in any joint Neurologic: Alert and awake. Combative occasionally. Minimal response to vocal commands with eye opening, showing the tongue and squeezing fingers with the upper extremities. No significant conversation. Difficult to have full neurological examination Results & Data Results & Data ([facility]) Vital Signs (Past 12 Hours) Vital Signs Temp Pulse Resp BP Pulse Ox 08/02/21 17:20 74 17 96 08/02/21 17:10 71 22 95 08/02/21 17:00 76 18 135/89 97 08/02/21 16:50 79 18 139/86 95 08/02/21 16:40 78 16 123/82 97 08/02/21 16:30 80 19 127/80 96 08/02/21 16:20 81 18 122/78 96 08/02/21 16:10 79 18 131/75 96 08/02/21 16:00 74 21 129/77 94 08/02/21 15:50 71 18 124/72 97 08/02/21 15:49 36.5 C 08/02/21 15:47 98 08/02/21 15:40 73 18 120/71 97 08/02/21 15:39 73 22 122/75 96 08/02/21 15:38 80 20 97 08/02/21 15:21 73 16 122/75 97 08/02/21 15:20 85 14 119/80 08/02/21 15:17 84 17 91 Laboratory Results Short CBC 08/02/21 Range/Units 15:19 WBC 10.81 H (4.8-10.8) K/uL Hgb 15.0 (14.0-18.0) g/dL Hct 43.6 (42-52) % Plt Count 218 (130-400) K/uL BMP 08/02/21 15:19 Sodium 138 Potassium 3.4 L Chloride 103 Carbon Dioxide 19 L BUN 12 Creatinine 0.89 Glucose 115 H Calcium 9.5 Liver Function 08/02/21 Range/Units 15:19 Total Bilirubin 0.6 (0.2-1.0) mg/dl AST 20 (13-39) U/L ALT 17 (7-52) U/L Alkaline Phosphatase 100 (34-104) U/L Albumin 4.2 (3.4-5.0) gm/dl Urine 08/02/21 Range/Units 15:53 Urine Color Yellow Urine Appearance Clear (Clear) Urine pH 5.0 (4.5-7.5) Ur Specific [place] 1.024 (1.000-1.030) Urine Protein Negative (Negative) Urine Glucose (UA) Negative (Negative) Medications Administered Current Inpatient Medications Levetiracetam 750 mg/ Sodium (Chloride) 107.5 mls @ 440 mls/hr IV BID [facility] Stop: 09/01/21 20:59 Lorazepam 1 mg/ Syringe 1 mls @ 2 mls/min IV Q8H PRN PRN Reason: Anxiety Stop: 09/01/21 17:25 Potassium Chloride/Sodium Chloride (Normal Saline W/20 Meq Kcl) 20 meq in 1,000 mls @ 80 mls/hr IV .[id number] [facility]; Protocol Stop: 09/01/21 17:29 Code Status & VTE Plan VTE Prophylaxis Plan VTE Prophylaxis will be ordered: Yes
[2021-08-02] MEDS ORDERED: GADOBUTROL 30ML VIAL IV ONE (18:18)
--- NOTE | 2021-08-02 18:44 | Magnetic Resonance Report ---
MR brain seizure wo/w con CLINICAL HISTORY: seizure, lesion on ct scan TECHNIQUE: Multiplanar and multisequence MR images of the brain were obtained prior to and following administration of gadolinium contrast. Comparison: None available at the time of this dictation. FINDINGS: No abnormal restricted diffusion is identified. The white matter is unremarkable. The ventricular sys tem is normal in appearance. No mass or abnormal enhancement is seen. There is no mass effect or midl ine shift. Tiny foci of stability artifact are seen in the periphery of this lesion. There is a rim-e nhancing cystic lesion in the left parieto-occipital subcortical white matter measuring 21 x 19 15 mm . there is minimal surrounding edema. The corpus callosum, pituitary gland, and cerebellar tonsils ap pear grossly unremarkable. High-resolution images of the temporal lobes do not demonstrate any signal abnormality. Flow voids of the major intracranial arterial vessels are identified. The imaged portions of the para nasal sinuses, mastoid air cells, and orbits are unremarkable. IMPRESSION: Rim-enhancing cystic lesion in the left parieto-occipital subcortical white matter with minimal surro unding edema in a tiny amount of surrounding hemorrhage. Findings are concerning for primary OPTICAL GOODS WORKER neop lasm such as glioblastoma or astrocytoma. Metastatic disease is considered less likely given Limited edema. Also possible, although less concordant with patient history, are OPTICAL GOODS WORKER lymphoma, cerebral absce ss, tuberculoma, or cysticercosis. ACT 112: Negative or not required by law. Electronically signed by: Moreno Valiente M.D. 08/02/2021 6:42 PM
[2021-08-02] MEDS ORDERED: NSS + 20MEQ KCL 20 MEQ/1,000 ML BAG IV SCH (20:00)
--- NOTE | 2021-08-02 20:25 | Communication Note ---
Date of Service: August 02, 2021 Current Inpatient Medications Alfuzosin HCl (Alfuzosin Hcl 10 Mg Tab) 10 mg PO DAILY [facility] Stop: 09/02/21 08:59 Lorazepam 1 mg/ Syringe 1 mls @ 2 mls/min IV Q8H PRN PRN Reason: Anxiety Stop: 09/01/21 17:25 Potassium Chloride/Sodium Chloride (Normal Saline W/20 Meq Kcl) 20 meq in 1,000 mls @ 80 mls/hr IV .[id number]; Protocol Stop: 09/01/21 19:59 Levetiracetam 750 mg/ Sodium (Chloride) 107.5 mls @ 440 mls/hr IV BID [facility] Stop: 09/02/21 08:59 Pantoprazole Sodium (Pantoprazole 40 Mg Tab) 40 mg PO QAM [facility] Stop: 09/02/21 08:59
--- NOTE | 2021-08-02 20:33 | Discharge Summary ---
Date of Service August 02, 2021 Admission HPI Per Admitting Provider The history was taken from the . He is a 60-year-old male without significant past medical history and has been visiting from [facility] apparently has been complaining of right arm discomfort for the last 1 week. He was trying to reach things with his right upper extremity but sometime he was missing the object. This happened x2 for the last 1 week and he did not have any other associated symptoms with it. This afternoon around 1:30 PM he went downstairs and from there he yelled for his who went to see him in the basement and noted to have abnormal movements involving the upper extremity in the form of stiffness and also he was rolling his eyes and noted to have some drooling from the mouth. He tried to communicate but he does unrecognizable as per the . He did not have any self injury or did not have any incontinence but he was noted to be at the corner of the restroom and almost sliding down the wall. EMS was called in and he was noted to be combative on the way and received intravenous Ativan to control the symptoms. He was noted to have his eyes gaze to the right as per the ER physician but during examination his eyes were in normal position. He tried to obey commands and try to talk to me but did not really follow any commands. Tried to squeeze the fingers with both sides but did not move his legs. Plantars were withdrawing. There is no neck stiffness. CT scan of the head did not show left occipital lesion could be old but CTA were unremarkable his other labs are unremarkable too. He was admitted to ICU for close observation in ICU. He was loaded with Keppra for possible seizure episode. Admission Exam Per Admitting Provider Physical Exam: Lying in bed with occasional restlessness Constitutional: well developed, well nourished, + ill appearing and + obese Eyes: PERRL, conjunctivae normal, anicteric sclerae ENMT: external ear and nose normal, oropharynx normal Neck: trachea midline, no thyromegaly Respiratory: no respiratory distress Auscultation: lungs clear to auscultation bilaterally Cardiovascular: Rate/Rhythm: regular rate and regular rhythm; not tachycardic Heart Sounds: normal S1 and normal S2; no murmur Extremities: no edema Gastrointestinal (Abdomen): Inspection/Auscultation: normal bowel sounds; abdomen not distended Percussion/Palpation: abdomen soft; abdomen nontender Musculoskeletal: No acute arthritis in any joint Neurologic: Alert and awake. Combative occasionally. Minimal response to vocal commands with eye opening, showing the tongue and squeezing fingers with the upper extremities. No significant conversation. Difficult to have full neurological examination Principal Diagnosis Cystic left parieto-occipital lesion,Seizures Discharge Exam Lying in bed with occasional restlessness Constitutional well developed, well nourished, + ill appearing and + obese Eyes PERRL, conjunctivae normal, anicteric sclerae ENMT external ear and nose normal, oropharynx normal Neck trachea midline, no thyromegaly Respiratory no respiratory distress Auscultation: lungs clear to auscultation bilaterally Cardiovascular Rate/Rhythm: regular rate and regular rhythm; not tachycardic Heart Sounds: normal S1 and normal S2; no murmur Extremities: no edema Gastrointestinal (Abdomen) Inspection/Auscultation: normal bowel sounds; abdomen not distended Percussion/Palpation: abdomen soft; abdomen nontender Discharge Data Allergies Allergy/AdvReac Type Severity Reaction Status Date / Time No Known Allergies Allergy Verified 08/02/21 16:05 Consultations 08/02/21 16:57 ED Decision to Admit Stat Ordered Studies 08/02/21 15:19 CT angio head w con Stat CT angio neck with con Stat CT head/brain wo con Stat 08/02/21 17:01 MR brain seizure wo/w con Stat Hospital Course (1) Seizure disorder: Right upper extremity clumsiness for 1 week followed by Stiffness and drooling and combativeness seen this afternoon Likely has seizure with left occipital lesion in CAT scan Discussed with neurologist Has been loaded with intravenous Keppra and will continue with Keppra 750 mg twice daily We will keep him n.p.o. Cautious amount of intravenous fluid Ativan as needed for any seizure disorder and or agitation Seizure precaution MRI showed IMPRESSION: Rim-enhancing cystic lesion in the left parieto-occipital subcortical white matter with minimal surrounding edema in a tiny amount of surrounding hemorrhage. Findings are concerning for primary COUNTY PROGRAM TECHNICIAN neoplasm such as glioblastoma or astrocytoma. Metastatic disease is considered less likely given Limited edema. Also possible, although less concordant with patient history, are COUNTY PROGRAM TECHNICIAN lymphoma, cerebral abscess, tuberculoma, or cysticercosis. Case discussed with the Neurologist over here and then Neurosurgery at [place] -Dr Soto and [place] [facility] -Dr Rodriguez and the patient was transferred to [facility] for continued care Discussed with the Family members (2) Change in mental status: Likely secondary to seizure disorder Urine tox screen has been negative No history of drug and/or alcohol abuse We will observe (3) Dyspepsia: Continue Protonix (4) Prostatic hypertrophy: Continue current medication DVT prophylaxis SCDs for now CODE STATUS Full Total Time Total Time Spent Total Time Spent (In Minutes): 45 minutes Discharge Plan Discharge Items Patient Disposition: Transfer Acute Care Hospital Reason For Visit: SEIZURE DISORDER Discharge Diagnosis: Cystic left occipito-parietal lesion,Seizures Condition on Discharge: Serious Activity: As commented below Activity Comment: In patient transfer Non-emergency contact: Primary Care Provider Call non-emergency contact if: you have any medication questions and your symptoms worsen Follow-up/Referrals: PCP,NO [Primary Care Provider] - Diet: Nothing by Mouth Addtl Attending Provider Instructions: Transferred to [place] All of the in-patient medications were continued as below: Date of Service: August 02, 2021 Current Inpatient Medications Alfuzosin HCl (Alfuzosin Hcl 10 Mg Tab) 10 mg PO DAILY [facility] Stop: 09/02/21 08:59 Lorazepam 1 mg/ Syringe 1 mls @ 2 mls/min IV Q8H PRN PRN Reason: Anxiety Stop: 09/01/21 17:25 Potassium Chloride/Sodium Chloride (Normal Saline W/20 Meq Kcl) 20 meq in 1,000 mls @ 80 mls/hr IV .[id number] [facility]; Protocol Stop: 09/01/21 19:59 Levetiracetam 750 mg/ Sodium (Chloride) 107.5 mls @ 440 mls/hr IV BID [facility] Stop: 09/02/21 08:59 Pantoprazole Sodium (Pantoprazole 40 Mg Tab) 40 mg PO QAM [facility] Stop: 09/02/21 08:59 Decadron 4 mg IV q6h Pending Studies at Discharge: No Stand-Alone Forms: My [facility] Skilled Items Patient informed of condition?: Yes DNR: No Discharge Level of Care: Other Communicable Disease: No Discharge Prognosis: Stable Lines: Peripheral IV Urinary Catheter: No Medications and DC Order Prescriptions: Continued pantoprazole 40 mg tablet,delayed release (DR/EC) 40 mg PO QAM RF: 0 alfuzosin 10 mg tablet extended release 24 hr 10 mg PO DAILY RF: 0 Discharge Orders: Discharge Order (Routine); Ordered 08/02/21 Ordered By: Marley Jerome Admission Data Admit Date/Time: 08/02/21 17:23 Attending Provider: Marley Jerome Admit Provider: Marley Jerome Primary Care Provider: PCP,NO Other Providers: Marley Jerome
[2021-08-02] MEDS ORDERED: dexAMETHasone 4 MG in SYRINGE 0 ML IV SCH (21:00)
[2021-08-02] MEDS ORDERED: levETIRAcetam 750 MG in 0.9 % SODIUM CHLORIDE 100 ML IV SCH (21:00)
--- NOTE | 2021-08-02 21:40 | Electrocardiogram Report ---
Test Reason : Blood Pressure : / mmHG Vent. Rate : 085 BPM Atrial Rate : 085 BPM P-R Int : 190 ms QRS Dur : 090 ms QT Int : 378 ms P-R-T Axes : 020 -29 019 degrees QTc Int : 449 ms Normal sinus rhythm Minimal voltage criteria for LVH, may be normal variant Cannot rule out Anterior infarct , age undetermined Abnormal ECG No previous ECGs available Confirmed by Sander Andrew ([id number]) on 08/02/2021 9:39:47 PM Referred By: REFERRED SELF Confirmed By:Sander Andrew
[2021-08-03] MEDS ORDERED: ALFUZOSIN HCL 10 MG TAB PO SCH (09:00)
[2021-08-03] MEDS ORDERED: PANTOprazole 40 MG TAB PO SCH (09:00)
[2021-08-03] MEDS ORDERED: levETIRAcetam 750 MG in 0.9 % SODIUM CHLORIDE 100 ML IV SCH (09:00)
== END 2021-08-02 22:45 | disposition short-term general hospital (02) | DRG 100 ==
LOC: ED 15:11 → INTOOBSV 17:23 → 1E 17:23